=== PATIENT | female | born 1995 | race Asian ===

== ENCOUNTER 2019-11-16 15:08 | Emergency (ER) | payer OTHER ==
[~2019-11-16] VITALS: Ht 165.1 cm; Wt 65.3 kg
--- NOTE | 2019-11-16 15:36 | EKG ---
[address] [address] Test Date: 2019-11-16 Test Time: 15:14:52 Pat Name: MESFIN VICKERS Department: Room: Gender: F Central Supply Manager: : 1995 Requested By: SHIRELY ZIEGLER Order Number: [id number] Reading MD: Measurements Intervals [place] Rate: 70 P: MN: QRS: 38 QRSD: 82 T: 24 QT: 408 QTc: 443 Interpretive Statements IRREGULAR RHYTHM, NO P-WAVE FOUND OTHERWISE NORMAL ECG RI6.02 No previous ECG available for comparison
--- NOTE | 2019-11-16 15:49 | PHYS DOC ---
Past History Past Medical History: Anxiety, Depression, GERD Past Surgical History: No Surgical History Smoking: Non-smoker Alcohol Use: Occasionally Drug Use: None General Adult EDM: Chief Complaint: CHEST PAIN HPI: HPI: Patient is a 24-year-old female with history of anxiety and depression who presents with left-sided chest pain and throat tightness that started on Friday after donating plasma. She describes the chest pain as constant and intermittently she will feel some chest tightness. Patient states that she also had some lightheadedness which has gone away at this time. Patient tried taking Tums because she believed it was acid reflux, with little improvement. She denies any numbness or tingling down her left arm. Patient denies any abdominal pain, cough, fever, chills, or N/V. Patient denies recent travel, surgery, trauma, or taking OCPs. She also denies any lower extremity edema/pain. No known sick contacts. Patient does reports some increased life stressors. Review of Systems: Review of Systems: Constitutional: Denies fever or chills Eyes: Denies redness or eye pain HENT: Denies nasal congestion or sore throat Respiratory: Denies cough or shortness of breath Cardiovascular: Denies chest pain or palpitations, reports chest tightness GI: Denies abdominal pain, nausea, or vomiting : Denies dysuria or hematuria Musculoskeletal: Denies back pain or joint pain, or chest wall pain, denies lower extremity edema/pain Integument: Denies rash or skin lesions Neurologic: Denies headache, focal weakness or sensory changes Complete systems were reviewed and found to be within normal limits, except as documented in this note. Heart Score: HEART Score for Chest Pain: HEART Score for Chest Pain Response (Comments) Value History Slighlty/Non-Suspicious 0 ECG Normal 0 Age < 45 0 Risk Factors No Risk Factors 0 Total 0 Allergies: Allergies: Allergies Coded Allergies Type Severity Reaction Last Updated Verified Sulfa (Sulfonamide Antibiotics) Allergy Unknown 11/16/19 Yes hazelnut Allergy Unknown 11/16/19 Yes Physical Exam: PE: Constitutional: Well developed, well nourished, no acute distress, non-toxic appearance HENT: Normocephalic, atraumatic Eyes: PERRL, EOMI, conjunctiva normal, no discharge Neck: Normal range of motion, no tenderness, supple Lungs & Thorax: No respiratory distress, equal chest rise and fall, no tenderness to palpation of chest wall Abdomen: Soft, no tenderness Skin: Warm, dry, no erythema, no rash Back: No tenderness, no CVA tenderness Extremities: No tenderness or edema of bilateral lower extremities Neurologic: Alert and oriented X 3, normal motor function, normal sensory function, no focal deficits noted Psychologic: Affect normal, judgment normal Current Patient Data: Vital Signs: Vital Signs Date Time Temp Pulse Resp B/P (MAP) Pulse Ox O2 Delivery O2 Flow Rate FiO2 11/16/19 15:08 65 14 121/65 (83) 100 Room Air EKG: EKG: EKG at 1514 is normal sinus rhythm with a heart rate of 70, QRS 82, QTc 443, no ST elevations. Radiology/Procedures: Radiology/Procedures: PROCEDURE: CHEST PA & LATERAL Chest radiograph 11/16/2019 3:27 PM INDICATION: Chest pain, shortness of air COMPARISON: None available TECHNIQUE: Frontal and lateral views of the chest are provided. FINDINGS: The cardiomediastinal silhouette is within normal limits. There are no pleural effusions. There is no pulmonary vascular congestion. There is no pneumothorax. The lungs are clear. No significant osseous abnormality is identified. IMPRESSION: No acute cardiopulmonary process. Electronically signed by: Luz Taylor MD (11/16/2019 3:49 PM) [id number] Course & Med Decision Making: Course & Med Decision Making Pertinent Labs and Imaging studies reviewed. (See chart for details) Patient is a 24-year-old female with a history of anxiety and depression who presents to the emergency room with left-sided chest pain and throat tightness. Patient was PERC negative and her vitals remained stable throughout her entire stay here. Her chest x-ray came back with no acute cardiopulmonary process. Due to her age and lack of risk factors, I do not believe this is cardiac related. I suspect her symptoms are due to her anxiety. I discussed following up with her PCP for further eval regarding rescue medications for her anxiety. Patient is stable for discharge at this time. Return precautions were given. Patient stable for discharge with outpatient follow-up with PCP. Discussed findings and plan with patient, who acknowledges understanding and agreement. Kris Disclaimer: Kris Disclaimer: This electronic medical record was generated, in whole or in part, using a voice recognition dictation system. PERC Rule for PE PERC Rule for PE Response (Comments) Value Age > 50: No 0 HR > 100: No 0 Sa02 on room air <95%: No 0 Unilateral leg swelling: No 0 Hemoptysis: No 0 Recent surgery or trauma: No 0 Prior PE or DVT: No 0 Hormone use: No 0 Total 0 Departure Departure: Impression: Primary Impression: Atypical chest pain Disposition: HOME/RESIDENCE PRIOR TO ADM Condition: STABLE Referrals: DAKOTA TIJERINA MD (PCP) Patient Instructions: Anxiety and Panic Attacks, [id number], Chest Pain (Nonspecific), [id number], Gastritis, Adult, [id number] Scripts Famotidine (PEPCID) 20 Mg Tablet 1 TAB PO DAILY for gastritis, #30 TAB Prov: SHIRLEY ZIEGLER DO 11/16/19 Lorazepam (ATIVAN) 1 Mg Tablet 0.5-1 TAB PO Q8HRS PRN for ANXIETY MDD 3 Tablet(s), #10 TAB 0 Refills Prov: SHIRLEY ZIEGLER DO 11/16/19 Justification of Admission: Justification of Admission: Justification of Admission Dx: N/A SHIRLEY ZIEGLER DO Nov 16, 2019 15:48
[2019-11-16 15:50] VITALS: BP 105/57
--- NOTE | 2019-11-16 15:52 | RAD ---
Chest radiograph 11/16/2019 3:27 PM INDICATION: Chest pain, shortness of air COMPARISON: None available TECHNIQUE: Frontal and lateral views of the chest are provided. FINDINGS: The cardiomediastinal silhouette is within normal limits. There are no pleural effusions. There is no pulmonary vascular congestion. There is no pneumothorax. The lungs are clear. No significant osseous abnormality is identified. IMPRESSION: No acute cardiopulmonary process. Electronically signed by: Luz Taylor MD (11/16/2019 3:49 PM) [id number]
[2019-11-16] MEDS ORDERED: LORA-254 PO (16:14)
[2019-11-16] MEDS ORDERED: FAMO-63 PO (16:14)
== END 2019-11-16 16:15 | disposition home or self-care (01) ==
LOC: ER 15:08
DX: R07.89 Other chest pain (principal); R42 Dizziness and giddiness; F41.9 Anxiety disorder, unspecified; F32.9 Major depressive disorder, single episode, unspecified; K21.9 Gastro-esophageal reflux disease without esophagitis; Z88.2 Allergy status to sulfonamides; Z88.8 Allergy status to other drugs, medicaments and biological substances
CPT/HCPCS: 71046; 93005; 99283